=== PATIENT | male | born 1970 | race American Indian/Alaskan Native ===

== ENCOUNTER 2016-07-23 18:41 | Emergency (ER) | payer MEDICAID ==
[2016-07-23] MEDS ORDERED: BUFFERED LIDOCAINE 10 ML SYRINGE SUBQ STA (18:59)
[2016-07-23] MEDS ORDERED: diazePAM 5 MG TABLET PO STA (18:59)
[2016-07-23] MEDS ORDERED: TETANUS/DIPHTHERIA/PERTUSSIS 0.5 ML SYRINGE IM ONE ×2 (18:59→20:37)
[2016-07-23] MEDS ORDERED: diazePAM 5 MG TABLET PO ONE (19:01)
[2016-07-23] MEDS ORDERED: BUFFERED LIDOCAINE 10 ML SYRINGE ONE (19:17)
[2016-07-23] MEDS ORDERED: HYDROcod/ACET 5/325 Prepack 6 PO STA (20:33)
[2016-07-23] MEDS ORDERED: HYDROcod/ACET 5/325 Prepack 6 PO ONE (20:37)
== END 2016-07-23 20:49 | disposition home or self-care (01) ==
DX: S61.012A Laceration without foreign body of left thumb without damage to nail, initial encounter (principal); W29.8XXA Contact with other powered hand tools and household machinery, initial encounter; Y92.009 Unspecified place in unspecified non-institutional (private) residence as the place of occurrence of the external cause; Z23 Encounter for immunization; F17.200 Nicotine dependence, unspecified, uncomplicated; R03.0 Elevated blood-pressure reading, without diagnosis of hypertension
CPT/HCPCS: 12042; 73140; 90471; 90715; 99283; A9270

== ENCOUNTER 2016-08-26 10:02 | Outpatient (CLI) | payer MEDICAID | END 2016-08-26 10:03 | disposition home or self-care (01) | DX: E11.9 Type 2 diabetes mellitus without complications (principal) ==

== ENCOUNTER 2017-01-20 08:23 | Emergency (ER) | payer MEDICAID ==
[2017-01-20 08:30] VITALS: BP 142/93
[2017-01-20] MEDS ORDERED: oxyCOD/ACETAMIN 5 MG/325 MG TABLET PO STA (08:49)
[2017-01-20] MEDS ORDERED: LORazepam 0.5 MG TABLET PO STA ×2 (08:49→09:31)
[2017-01-20] MEDS ORDERED: BUPIVACAINE 0.5% PF 30 ML VIAL SUBQ STA (08:50)
[2017-01-20] MEDS ORDERED: BUPIVACAINE 0.25% PF 30 ML VIAL ONE (08:50)
[2017-01-20] MEDS ORDERED: BUPIVACAINE 0.5% PF 30 ML VIAL ONE (08:53)
[2017-01-20] MEDS ORDERED: oxyCOD/ACETAMIN 5 MG/325 MG TABLET PO ONE (08:58)
[2017-01-20] MEDS ORDERED: LORazepam 0.5 MG TABLET ONE ×2 (08:59→09:38)
--- NOTE | 2017-01-20 09:21 | ED Physician Documentation ---
History of Present Illness - Stated complaint Stated Complaint: FINGER LAC - Chief complaint Chief Complaint: Laceration - Additonal information Additional information: hx from pt 46 male lac to prox L thumb on razor blade last night 6 PM still bleeding heavily seems he did not come in earlier because he is afraid of needles and sutures Review of Systems Skin: reports: Laceration (s) PD PAST MEDICAL HISTORY - Past Medical History Cardiovascular: None Respiratory: None Neuro: None Endocrine/Autoimmune: None GI: None : None HEENT: None Psych: None Musculoskeletal: None Derm: None - Past Surgical History Past Surgical History: No - Present Medications Home Medications: Ambulatory Orders Medication Instructions Recorded Confirmed Insulin Glargine [Lantus Solostar] 20 unit SUBQ QPM #1 vial 02/29/16 01/20/17 Lisinopril 5 mg PO DAILY #30 tablet 02/29/16 01/20/17 Cephalexin [Keflex] 500 mg PO Q6H #20 capsule 01/20/17 - Allergies Allergies/Adverse Reactions: Allergies Allergy/AdvReac Type Severity Reaction Status Date / Time No Known Drug Allergies Allergy Verified 01/20/17 08:30 - Social History Does the pt smoke?: Yes Smoking Status: Current every day smoker Does the pt drink ETOH?: Yes Does the pt have substance abuse?: No - Immunizations Immunizations are current?: Yes PD ED PE NORMAL - Vitals Vital signs reviewed: Yes - Extremities Extremities: Other (approx 2.5 cm lac dorsal aspect prox phalange L (non dom) thumb, sensory intact prior to dig block, but unable to extend IP joint) Results - Vitals Vitals: Vital Signs - 24 hr 01/20/17 01/20/17 08:25 11:23 Temperature 36.6 C 35.8 C L Heart Rate 99 92 Respiratory 19 20 Rate Blood Pressure 142/93 H 142/93 H O2 Saturation 99 97 Oxygen O2 Source Room air - Labs Labs: Laboratory Tests 01/20/17 11:10 POC Whole Bld Glucose 136 H PD MEDICAL DECISION MAKING - ED course ED course: pt extremely anxious unable to even allow me to touch the gauze dressing without almost jumping off the bed, requesting I not say the word "shot" or "suture" cannot possibly block and repair - or even adequately irrigate and evaluate the wound - until the pt is a little more calm - gave ativan and a percocet and will recheck pt finally pt calm enough to get wound blocked irrigated and visualized approx 2.5 cm lac dorsal aspect prox phalange L (non dom) thumb, sensory intact prior to dig block, but unable to extend IP joint pt refusing sutures, will steri strip, and splint thumb d/w ortho Dr Rebollar who advises that at 12 + hr from injury he recommends delayed tendon repair so splint and fup outpt ortho clin, pt verbally advised Departure - Departure Disposition: Home, Self Care Clinical Impression: Laceration of left thumb with tendon involvement Qualifiers: Encounter type: initial encounter Qualified Code(s): S61.012A - Laceration without foreign body of left thumb without damage to nail, initial encounter Condition: Fair Instructions: ED Laceration Tendon, ED Laceration Hand Follow-Up: Elder Rebollar MD [Provider Admit Priv/Credential] - Prescriptions: Cephalexin [Keflex] 500 mg PO Q6H #20 capsule Comments: This wound is problematic in two ways 1) no medical care was sough for > 12 hr so it is at risk for infection. The wound has been irrigated and I have prescribed antibiotics to try and prevent infection. But if you notice any increased redness or swelling or pain you should come back to the ER or the orthopedic office right away 2) you have cut through the extensor tendon of your thumb and will likely need surgery to repair the tendon. Wear the splint at all times except to change the dressing once a day. You need to call the orthopedic office to schedule your follow up appointment Leave the dressing we placed on for two days. Then gently wash the wound and change the dressing once a day. Motrin and tylenol as needed for the pain Also your blood pressure was high today - please follow up with your PMD to get it rechecked Forms: Activity restrictions Discharge Date/Time: 01/20/17 11:36
[2017-01-20] MEDS ORDERED: CEPHALEXIN 250 MG CAPSULE PO STA (10:53)
[2017-01-20] MEDS ORDERED: CEPHALEXIN 250 MG CAPSULE PO ONE (11:16)
== END 2017-01-20 11:36 | disposition home or self-care (01) ==
LOC: ED 08:23
DX: S61.012A Laceration without foreign body of left thumb without damage to nail, initial encounter (principal); W45.8XXA Other foreign body or object entering through skin, initial encounter; F17.200 Nicotine dependence, unspecified, uncomplicated
CPT/HCPCS: 64450; 99283; A9270